=== PATIENT | male | born 1965 | race Caucasian/White ===

== ENCOUNTER 2019-11-29 10:26 | Day surgery (SDC) | payer OTHER ==
[~2019-11-29] VITALS: Ht 182.9 cm; Wt 130.9 kg
[2019-11-29] MEDS ORDERED: LIDOCAINE/PF 2% 5 ML VIAL IM ONE (10:27)
[2019-11-29] MEDS ORDERED: PROPOFOL 1% 20 ML VIAL IVP ONE (10:27)
[2019-11-29] MEDS ORDERED: LISI-661 PO (10:58)
[2019-11-29] MEDS ORDERED: ASPI-728 PO (10:58)
[2019-11-29] MEDS ORDERED: OMEP20 PO (10:58)
[2019-11-29] MEDS ORDERED: GABA-1181 PO (10:58)
[2019-11-29] MEDS ORDERED: ATOR40TA28 PO (10:58)
[2019-11-29] MEDS ORDERED: SODIUM CHLORIDE 0.9% 1,000 ML IV ONE (11:00)
[2019-11-29] MEDS ORDERED: INSULIN REGULAR, HUMAN 100 UNITS/ML SQ ONE (11:00)
[2019-11-29 11:11] LABS: GLUCOMETER DEV NAME(LOC) SDS.; GLUCOSE,POINT OF CARE 303 MG/DL (70-110)
[2019-11-29 11:55] LABS: GLUCOMETER DEV NAME(LOC) SDS.; GLUCOSE,POINT OF CARE 280 MG/DL (70-110)
== END 2019-11-29 13:05 | disposition home or self-care (01) ==
LOC: SURGERY 10:26
PROVIDERS: ATTEND Student in an Organized Health Care Education/Training Program
DX: K21.0 Gastro-esophageal reflux disease with esophagitis (principal); K29.50 Unspecified chronic gastritis without bleeding; K22.2 Esophageal obstruction; K44.9 Diaphragmatic hernia without obstruction or gangrene; F17.210 Nicotine dependence, cigarettes, uncomplicated; Z98.890 Other specified postprocedural states
CPT/HCPCS: 43239; 82962; 87426; 88305; 88312; 88313; C1769; J2704; J3490

== ENCOUNTER 2020-09-08 06:57 | Day surgery (SDC) | payer OTHER ==
[~2020-09-08] VITALS: Ht 182.9 cm; Wt 129.2 kg
[~2020-09-08 06:57] MED LIST: ALOG25TA2 PO; ASPI-1450 PO; ATOR40TA28 PO; ERTU5TAB PO; GABA-1181 PO; IBUP-2077 PO; LISI-893 PO; LORA-1001 PO; OMEP20 PO; OMEP20CA13 PO
[2020-09-08] MEDS ORDERED: PROPOFOL 1% 20 ML VIAL IVP ONE (06:58)
[2020-09-08] MEDS ORDERED: LIDOCAINE/PF 2% 5 ML VIAL IM ONE (06:58)
[2020-09-08] MEDS ORDERED: SODIUM CHLORIDE 0.9% 1,000 ML ONE (07:34)
[2020-09-08] MEDS ORDERED: SODIUM CHLORIDE 0.9% 1,000 ML IV ONE (08:00)
[2020-09-08 08:16] LABS: COVID AG,FIA SOURCE NASOPHARYNGEAL
[2020-09-08 08:53] LABS: GLUCOMETER DEV NAME(LOC) SDS.; GLUCOSE,POINT OF CARE 292 MG/DL (70-110)
== END 2020-09-08 11:20 | disposition home or self-care (01) ==
LOC: SURGERY 06:57
PROVIDERS: ATTEND Student in an Organized Health Care Education/Training Program
DX: R13.10 Dysphagia, unspecified (principal); K22.2 Esophageal obstruction; K20.90 Esophagitis, unspecified without bleeding; K44.9 Diaphragmatic hernia without obstruction or gangrene; K25.9 Gastric ulcer, unspecified as acute or chronic, without hemorrhage or perforation; F17.210 Nicotine dependence, cigarettes, uncomplicated; E66.01 Morbid (severe) obesity due to excess calories; I10 Essential (primary) hypertension; K21.9 Gastro-esophageal reflux disease without esophagitis; E78.00 Pure hypercholesterolemia, unspecified; E11.9 Type 2 diabetes mellitus without complications; Z72.89 Other problems related to lifestyle; Z98.890 Other specified postprocedural states; Z79.899 Other long term (current) drug therapy
CPT/HCPCS: 43249; 82962; 87426; C9803; J2704; J3490; J7030